=== PATIENT | female | born 1940 | race Caucasian/White ===

== ENCOUNTER 2024-04-19 20:25 | Inpatient (IN) | payer MEDICARE, OTHER ==
[~2024-04-19] VITALS: Ht 162.6 cm; Wt 87.1 kg
[2024-04-19 21:16] LABS: BASOPHILS % (AUTO) 0.4 % (0.0-2.0); EOSINOPHILS # (AUTO) 0.2 K/uL (0.0-0.7); EOSINOPHILS % (AUTO) 2.2 % (0.0-7.0); HEMATOCRIT 38.2 % (31.2-41.9); HEMOGLOBIN 12.7 g/dL (10.9-14.3); LYMPHOCYTES # (AUTO) 1.9 K/uL (0.8-4.8); LYMPHOCYTES % (AUTO) 19.7 % (20.5-51.5); MEAN CORPUSCULAR HEMOGLOBIN 29.2 uug (24.7-32.8); MEAN CORPUSCULAR HGB CONC 33 g/dL (32.3-35.6); MEAN CORPUSCULAR VOLUME 87.8 fL (75.5-95.3); MONOCYTES # (AUTO) 0.7 K/uL (0.1-1.30); MONOCYTES % (AUTO) 7.5 % (0.0-11.0); NEUTROPHILS # (AUTO) 6.9 K/uL (1.8-8.9); NEUTROPHILS % (AUTO) 70.2 % (38.5-71.5); PLATELET COUNT (AUTO) 266 K/uL (179-408); RED BLOOD CELL COUNT(AUTO) 4.34 MIL/uL (3.63-4.92); RED CELL DISTRIBUTION WIDTH 13.7 % (12.3-17.7); WHITE BLOOD COUNT (AUTO) 9.8 K/uL (3.8-11.8)
[2024-04-19 21:28] LABS: DIFFERENTIAL COMMENT 1
[2024-04-19 21:41] LABS: ALANINE AMINOTRANSFERASE 23 U/L (14-59); ALBUMIN 3.6 g/dL (3.4-5.0); ALKALINE PHOSPHATASE 94 U/L (50-136); ASPARTATE AMINOTRANSFERASE 11 U/L (15-37); BILIRUBIN,DIRECT 0.1 mg/dL (0.0-0.2); BILIRUBIN,TOTAL 0.5 mg/dL (0.2-1.0); CALCIUM 8.7 mg/dL (8.5-10.1); CARBON DIOXIDE 30 mmol/L (21-32); CHLORIDE 100 mmol/L (98-107); CREATININE 0.5 mg/dL (0.6-1.3); GLUCOSE 144 mg/dL (74-106); POTASSIUM 3.8 mmol/L (3.5-5.1); SODIUM SERUM 139 mmol/L (136-145); TOTAL PROTEIN, SERUM 7.3 g/dL (6.4-8.2); UREA NITROGEN, BLOOD 14 mg/dL (7-18)
[2024-04-19] MEDS ORDERED: HYDROMORPHONE 1 MG/1 ML DISP.SYRIN ONE (22:00)
[2024-04-19] MEDS: HYDROMORPHONE 1 MG/1 ML DISP.SYRIN IV ONE (22:02)
[2024-04-19] MEDS ORDERED: ASPI-1420 PO (23:51)
[2024-04-19] MEDS ORDERED: OLME40TA18 PO (23:51)
[2024-04-20] MEDS ORDERED: ACETAMINOPHEN 325 MG TABLET PO PRN (00:15)
[2024-04-20] MEDS: ENOXAPARIN SODIUM 40 MG/0.4 ML DISP.SYRIN SQ SCH (00:15)
[2024-04-20] MEDS ORDERED: ONDANSETRON 4 MG/2 ML VIAL IV PRN (00:15)
[2024-04-20] MEDS ORDERED: IV NS 1000 ML 1,000 ML IV PRN (00:15)
[2024-04-20] MEDS ORDERED: MORPHINE SULFATE 2 MG/1 ML DISP.SYRIN ONE (01:02)
[2024-04-20] MEDS: MORPHINE SULFATE 2 MG/1 ML DISP.SYRIN IV PRN (01:07)
[2024-04-20] MEDS ORDERED: DOCUSATE SODIUM 100 MG CAPSULE PO ONE (02:45)
[2024-04-20] MEDS ORDERED: ENOXAPARIN SODIUM 40 MG/0.4 ML DISP.SYRIN SQ ONE (02:45)
[2024-04-20] MEDS: DOCUSATE SODIUM 100 MG CAPSULE PO SCH (02:48)
[2024-04-20 05:15] VITALS: BP 146/70; TEMP 97.9; O2SAT 94
[2024-04-20 09:13] VITALS: BP 188/75; TEMP 97.9; O2SAT 95
[2024-04-20] MEDS ORDERED: Medication Not On Formulary EA (Olmesartan Medoxomil 1 TAB) PO SCH (09:45)
[2024-04-20] MEDS: ASPIRIN EC 81 MG TABLET.DR PO SCH (10:11)
[2024-04-20] MEDS: LOSARTAN POTASSIUM 50 MG TABLET PO SCH (10:11)
[2024-04-20 12:03] VITALS: BP 112/43; TEMP 98.6; O2SAT 95
[2024-04-20] MEDS ORDERED: ASCO500C18 PO (13:25)
[2024-04-20] MEDS ORDERED: CLON0.1T PO (13:25)
[2024-04-20] MEDS ORDERED: ICOS1CAP PO (13:25)
[2024-04-20] MEDS ORDERED: VENL75TA74 PO (13:25)
[2024-04-20] MEDS ORDERED: DOCU250C15 PO (13:25)
[2024-04-20] MEDS ORDERED: CHOL50009 PO (13:25)
[2024-04-20] MEDS ORDERED: BETA1TAB18 PO (13:25)
[2024-04-20] MEDS ORDERED: OMEP40CA21 PO (13:25)
[2024-04-20] MEDS ORDERED: VENL37.591 PO (13:25)
[2024-04-20] MEDS ORDERED: VENLAFAXINE XR 37.5 MG CAP.SR.24H PO PRN (16:15)
[2024-04-20] MEDS ORDERED: DOCUSATE SODIUM 250 MG CAPSULE PO PRN (16:15)
[2024-04-20] MEDS: CLONIDINE HCL 0.1 MG TABLET PO SCH (16:46)
[2024-04-20] MEDS ORDERED: Icosapent Ethyl (Vascepa) 1 GM) PO SCH (17:00)
[2024-04-20] MEDS: CHOLECALCIFEROL 1,000 UNIT TABLET PO SCH (17:19)
[2024-04-20] MEDS: VENLAFAXINE XR 75 MG TAB.ER.24H PO SCH (17:20)
[2024-04-20] MEDS: ASCORBIC ACID 500 MG TABLET PO SCH (17:20)
[2024-04-20] MEDS: BETA CAROTENE/VIT C & E/MIN TABLET PO SCH (17:20)
[2024-04-20 19:50] VITALS: BP 165/61; TEMP 99.2; O2SAT 98
[2024-04-20 20:10] VITALS: BP 150/72
[2024-04-20] MEDS: HYDROCODONE/APAP 10-325 MG TABLET PO PRN (20:33)
[2024-04-21] VITALS (7 sets, daily range): BP systolic 115–164; BP diastolic 61–99; TEMP 97.8–98.7; O2SAT 94–98
[2024-04-21] MEDS: PANTOPRAZOLE SODIUM 40 MG TABLET.DR PO SCH (06:11)
[2024-04-21 07:26] LABS: BASOPHILS % (AUTO) 0.2 % (0.0-2.0); EOSINOPHILS # (AUTO) 0.1 K/uL (0.0-0.7); EOSINOPHILS % (AUTO) 1.5 % (0.0-7.0); HEMATOCRIT 35.6 % (31.2-41.9); HEMOGLOBIN 12.4 g/dL (10.9-14.3); LYMPHOCYTES # (AUTO) 2.1 K/uL (0.8-4.8); LYMPHOCYTES % (AUTO) 23.9 % (20.5-51.5); MEAN CORPUSCULAR HEMOGLOBIN 30.3 uug (24.7-32.8); MEAN CORPUSCULAR HGB CONC 35 g/dL (32.3-35.6); MEAN CORPUSCULAR VOLUME 87.1 fL (75.5-95.3); MONOCYTES # (AUTO) 0.9 K/uL (0.1-1.30); MONOCYTES % (AUTO) 10.5 % (0.0-11.0); NEUTROPHILS # (AUTO) 5.7 K/uL (1.8-8.9); NEUTROPHILS % (AUTO) 63.9 % (38.5-71.5); PLATELET COUNT (AUTO) 246 K/uL (179-408); RED BLOOD CELL COUNT(AUTO) 4.08 MIL/uL (3.63-4.92); RED CELL DISTRIBUTION WIDTH 14.1 % (12.3-17.7); WHITE BLOOD COUNT (AUTO) 8.9 K/uL (3.8-11.8)
[2024-04-21 07:37] LABS: ABG BASE EXCESS 1.4 mmol/L (-2.0-3.0); ABG HCO3 24.7 mmol/L (21.0-28.0); ABG PCO2 34.7 mmHg (32.0-45.0); ABG PO2 65.2 mmHg (83.0-108.0); ABG SITE LEFT RADIAL; ABG TOTAL HEMOGLOBIN 13.1 G/dL (12.0-16.0); AaDO2 94.1 mmHg; COHb 1.1 % (0.5-1.5); MetHb 0.2 % (0.0-1.5); O2Hb 91.9 % (94.0-98.0)
[2024-04-21 07:44] LABS: DIFFERENTIAL COMMENT 1
[2024-04-21 08:38] LABS: CARBON DIOXIDE 26 mmol/L (21-32); CHLORIDE 97 mmol/L (98-107); CREATININE 0.6 mg/dL (0.6-1.3); GLUCOSE 133 mg/dL (74-106); MAGNESIUM 1.9 mg/dL (1.8-2.4); PHOSPHOROUS 3.1 mg/dL (2.5-4.9); POTASSIUM 3.8 mmol/L (3.5-5.1); SODIUM SERUM 133 mmol/L (136-145); UREA NITROGEN, BLOOD 10 mg/dL (7-18)
[2024-04-21] MEDS: AMIODARONE HCL IV 150 MG in IV DEXTROSE 5% 100 ML IV ONE (11:26)
[2024-04-21] MEDS: AMIODARONE HCL IV 450 MG in IV DEXTROSE 5% 250 ML IV PRN (11:32)
[2024-04-22 06:00] VITALS: BP 172/88; TEMP 98.1; O2SAT 94
[2024-04-22 07:04] LABS: BASOPHILS % (AUTO) 0.3 % (0.0-2.0); EOSINOPHILS # (AUTO) 0.2 K/uL (0.0-0.7); EOSINOPHILS % (AUTO) 1.8 % (0.0-7.0); HEMATOCRIT 33.7 % (31.2-41.9); HEMOGLOBIN 11.6 g/dL (10.9-14.3); LYMPHOCYTES # (AUTO) 2.3 K/uL (0.8-4.8); LYMPHOCYTES % (AUTO) 24.8 % (20.5-51.5); MEAN CORPUSCULAR HEMOGLOBIN 29.7 uug (24.7-32.8); MEAN CORPUSCULAR HGB CONC 34 g/dL (32.3-35.6); MEAN CORPUSCULAR VOLUME 86.2 fL (75.5-95.3); MONOCYTES # (AUTO) 1.1 K/uL (0.1-1.30); MONOCYTES % (AUTO) 11.4 % (0.0-11.0); NEUTROPHILS # (AUTO) 5.8 K/uL (1.8-8.9); NEUTROPHILS % (AUTO) 61.7 % (38.5-71.5); PLATELET COUNT (AUTO) 247 K/uL (179-408); RED BLOOD CELL COUNT(AUTO) 3.91 MIL/uL (3.63-4.92); WHITE BLOOD COUNT (AUTO) 9.4 K/uL (3.8-11.8)
[2024-04-22 07:30] LABS: CALCIUM 8.1 mg/dL (8.5-10.1); CARBON DIOXIDE 26 mmol/L (21-32); CHLORIDE 94 mmol/L (98-107); CREATININE 0.5 mg/dL (0.6-1.3); GLUCOSE 144 mg/dL (74-106); MAGNESIUM 1.7 mg/dL (1.8-2.4); PHOSPHOROUS 3.5 mg/dL (2.5-4.9); POTASSIUM 3.9 mmol/L (3.5-5.1); SODIUM SERUM 129 mmol/L (136-145); UREA NITROGEN, BLOOD 11 mg/dL (7-18)
[2024-04-22 07:38] LABS: DIFFERENTIAL COMMENT 1
[2024-04-22 07:40] VITALS: BP 161/83; TEMP 98.4; O2SAT 98
[2024-04-22 11:42] VITALS: BP 143/85; TEMP 98.9; O2SAT 95
[2024-04-22] MEDS ORDERED: VANCOMYCIN 1000 MG VIAL ONE (14:41)
[2024-04-22] MEDS ORDERED: FENTANYL CITRATE 100 MCG/2 ML AMPUL ONE (14:46)
[2024-04-22] MEDS: HYDROMORPHONE 1 MG/1 ML DISP.SYRIN IV PRN (16:43)
[2024-04-22] MEDS ORDERED: CEFAZOLIN 1 G in IV DEXTROSE 5% 50 ML IV SCH (17:15)
[2024-04-22] MEDS: IV D5W-0.45% NS +20 KCL 1,000 ML IV PRN (17:47)
[2024-04-22] MEDS: MAGNESIUM OXIDE 400 MG TABLET PO ONE (17:47)
[2024-04-22 19:50] VITALS: BP 116/67; TEMP 97.4; O2SAT 97
[2024-04-22] MEDS: HYDROCODONE/APAP 10-325 MG TABLET PO PRN (20:14)
[2024-04-22] MEDS: CEFAZOLIN 1 G in IV DEXTROSE 5% 50 ML IV SCH (22:12)
[2024-04-23 06:49] LABS: BASOPHILS % (AUTO) 0.2 % (0.0-2.0); EOSINOPHILS # (AUTO) 0.2 K/uL (0.0-0.7); EOSINOPHILS % (AUTO) 2.1 % (0.0-7.0); HEMOGLOBIN 10.2 g/dL (10.9-14.3); LYMPHOCYTES # (AUTO) 2.1 K/uL (0.8-4.8); LYMPHOCYTES % (AUTO) 23.7 % (20.5-51.5); MEAN CORPUSCULAR HEMOGLOBIN 30.3 uug (24.7-32.8); MEAN CORPUSCULAR HGB CONC 35 g/dL (32.3-35.6); MEAN CORPUSCULAR VOLUME 86.2 fL (75.5-95.3); MONOCYTES # (AUTO) 1.2 K/uL (0.1-1.30); MONOCYTES % (AUTO) 13.8 % (0.0-11.0); NEUTROPHILS # (AUTO) 5.3 K/uL (1.8-8.9); NEUTROPHILS % (AUTO) 60.2 % (38.5-71.5); PLATELET COUNT (AUTO) 249 K/uL (179-408); RED BLOOD CELL COUNT(AUTO) 3.37 MIL/uL (3.63-4.92); RED CELL DISTRIBUTION WIDTH 13.8 % (12.3-17.7); WHITE BLOOD COUNT (AUTO) 8.9 K/uL (3.8-11.8)
[2024-04-23 07:06] LABS: DIFFERENTIAL COMMENT 1
[2024-04-23 07:11] LABS: CALCIUM 7.4 mg/dL (8.5-10.1); CARBON DIOXIDE 25 mmol/L (21-32); CHLORIDE 95 mmol/L (98-107); CREATININE 0.5 mg/dL (0.6-1.3); GLUCOSE 157 mg/dL (74-106); MAGNESIUM 1.9 mg/dL (1.8-2.4); PHOSPHOROUS 3.4 mg/dL (2.5-4.9); POTASSIUM 4.2 mmol/L (3.5-5.1); SODIUM SERUM 128 mmol/L (136-145); UREA NITROGEN, BLOOD 16 mg/dL (7-18)
[2024-04-23 07:46] VITALS: BP 126/69; TEMP 98.2; O2SAT 98
[2024-04-23] MEDS: MORPHINE SULFATE 2 MG/1 ML DISP.SYRIN IV PRN (09:10)
[2024-04-23 11:49] VITALS: BP 111/65; TEMP 97.7; O2SAT 98
[2024-04-23] MEDS ORDERED: LOSA50TA3 PO (12:49)
[2024-04-23] MEDS ORDERED: ENOX40DI SQ ×2 (12:49→19:06)
[2024-04-23 15:35] VITALS: BP 109/59; TEMP 97.9; O2SAT 95
[2024-04-23] MEDS ORDERED: OMEGA-3 FATTY ACIDS/FISH OIL CAPSULE PO SCH (17:00)
[2024-04-23] MEDS ORDERED: PANT40TA49 PO (19:06)
[2024-04-23] MEDS ORDERED: VENL-192 PO (19:06)
[2024-04-23] MEDS ORDERED: ICOS1CAP PO (19:06)
[2024-04-23] MEDS ORDERED: LOSA100T31 PO (19:06)
[2024-04-23] MEDS ORDERED: CHOL500062 PO (19:06)
[2024-04-23] MEDS ORDERED: CLON-418 PO (19:06)
[2024-04-23] MEDS ORDERED: BETA1TAB19 PO (19:06)
[2024-04-23] MEDS ORDERED: OLME5TAB6 PO (19:06)
[2024-04-23] MEDS ORDERED: ASCO500C18 PO (19:06)
[2024-04-23] MEDS ORDERED: DOCU250C15 PO (19:06)
[2024-04-23] MEDS ORDERED: ASPI-1420 PO (19:06)
== END 2024-04-23 15:53 | DRG 481 ==
LOC: EDBD 20:25 → ER 22:39 → TELE3 04-20 04:23 → TELE-TD3 04-21 09:45 → TELE3 04-22 19:00 → TELE-TD3 04-23 06:36 → MEDSURG3 04-23 08:55
PROVIDERS: ADMIT Nurse Practitioner Acute Care; ATTEND Nurse Practitioner Acute Care
PROC: 2W3CX1Z Immobilization of Right Lower Arm using Splint (ICD-10-PCS; 2024-04-19)
PROC: 05HY33Z Insertion of Infusion Device into Upper Vein, Percutaneous Approach (ICD-10-PCS; 2024-04-21)
PROC: 0QS636Z Reposition Right Upper Femur with Intramedullary Internal Fixation Device, Percutaneous Approach (ICD-10-PCS; principal; 2024-04-22)
DX: S72.141A Displaced intertrochanteric fracture of right femur, initial encounter for closed fracture (principal); D68.59 Other primary thrombophilia; S52.571A Other intraarticular fracture of lower end of right radius, initial encounter for closed fracture; E87.1 Hypo-osmolality and hyponatremia; W01.190A Fall on same level from slipping, tripping and stumbling with subsequent striking against furniture, initial encounter; Y92.038 Other place in apartment as the place of occurrence of the external cause; E66.9 Obesity, unspecified; Z68.33 Body mass index [BMI] 33.0-33.9, adult; K57.30 Diverticulosis of large intestine without perforation or abscess without bleeding; Z79.82 Long term (current) use of aspirin; Z79.899 Other long term (current) drug therapy; E78.5 Hyperlipidemia, unspecified; G89.29 Other chronic pain; M51.360 Other intervertebral disc degeneration, lumbar region with discogenic back pain only; M48.061 Spinal stenosis, lumbar region without neurogenic claudication; M47.816 Spondylosis without myelopathy or radiculopathy, lumbar region; I11.9 Hypertensive heart disease without heart failure; F41.9 Anxiety disorder, unspecified; I48.0 Paroxysmal atrial fibrillation; Z86.16 Personal history of COVID-19; Z87.891 Personal history of nicotine dependence; K56.41 Fecal impaction
CPT/HCPCS: 36415; 36600; 70450; 71045; 72192; 73110; 73503; 82803; 83605; 83735; 84100; 84484; 85025; 85730; 93307; A4606; A4663; G0378; J0282; J0690; J1171; J1650; J2270; J3010; J3370; J7050

== ENCOUNTER 2024-04-23 14:16 | Inpatient (IN) | payer MEDICARE, OTHER ==
[~2024-04-23] VITALS: Ht 162.6 cm; Wt 87.1 kg
[~2024-04-23 14:16] MED LIST: ASCO500C18 PO; ASPI-1420 PO; BETA1TAB18 PO; CHOL50009 PO; CLON0.1T PO; DOCU250C15 PO; ENOX40DI SQ; ICOS1CAP PO; LOSA50TA3 PO; OLME40TA18 PO; OMEP40CA21 PO; VENL37.591 PO; VENL75TA74 PO
[2024-04-23] MEDS ORDERED: BETA1TAB19 PO (19:06)
[2024-04-23] MEDS ORDERED: DOCU250C15 PO (19:06)
[2024-04-23] MEDS ORDERED: PANT40TA49 PO (19:06)
[2024-04-23] MEDS ORDERED: CLON-418 PO (19:06)
[2024-04-23] MEDS ORDERED: ASCO500C18 PO (19:06)
[2024-04-23] MEDS ORDERED: ASPI-1420 PO (19:06)
[2024-04-23] MEDS ORDERED: ICOS1CAP PO (19:06)
[2024-04-23] MEDS ORDERED: ENOX40DI SQ (19:06)
[2024-04-23] MEDS ORDERED: VENL-192 PO (19:06)
[2024-04-23] MEDS ORDERED: LOSA100T31 PO (19:06)
[2024-04-23] MEDS ORDERED: CHOL500062 PO (19:06)
[2024-04-23] MEDS ORDERED: OLME5TAB6 PO (19:06)
[2024-04-23] MEDS: MAGNESIUM HYDROXIDE 30 ML LIQUID UDC PO PRN (20:55)
[2024-04-23 21:38] VITALS: BP 107/47; TEMP 97.9; O2SAT 90
[2024-04-24] MEDS ORDERED: DOCUSATE SODIUM 250 MG CAPSULE PO PRN (02:30)
[2024-04-24] MEDS: ENOXAPARIN SODIUM 40 MG/0.4 ML DISP.SYRIN SQ SCH (03:46)
[2024-04-24] MEDS: HYDROCODONE/APAP 5-325MG TABLET PO PRN (06:48)
[2024-04-24] MEDS: PANTOPRAZOLE SODIUM 40 MG TABLET.DR PO SCH (06:48)
[2024-04-24 07:39] VITALS: BP 148/65; TEMP 97.7; O2SAT 91
[2024-04-24] MEDS ORDERED: Icosapent Ethyl (Vascepa) 1 GM) PO SCH (09:00)
[2024-04-24] MEDS ORDERED: Medication Not On Formulary EA (Omeprazole 40 MG) PO SCH (09:00)
[2024-04-24] MEDS: ASPIRIN EC 81 MG TABLET.DR PO SCH (09:22)
[2024-04-24] MEDS: BETA CAROTENE/VIT C & E/MIN TABLET PO SCH (09:22)
[2024-04-24] MEDS: LOSARTAN POTASSIUM 50 MG TABLET PO SCH (09:24)
[2024-04-24] MEDS: VENLAFAXINE XR 75 MG TAB.ER.24H PO SCH (09:25)
[2024-04-24] MEDS: ASCORBIC ACID 500 MG TABLET PO SCH (09:25)
[2024-04-24] MEDS: CHOLECALCIFEROL 1,000 UNIT TABLET PO SCH (09:25)
[2024-04-24] MEDS: CLONIDINE HCL 0.1 MG TABLET PO SCH (09:26)
[2024-04-24] MEDS ORDERED: NALOXONE HCL 0.4 MG/ML AMPUL IV PRN (11:15)
[2024-04-24] MEDS: IV NORMAL SALINE 250 ML IV ONE (12:41)
[2024-04-24 12:53] VITALS: BP 130/49; TEMP 98.1; O2SAT 92
[2024-04-24] MEDS: OXYCODONE HCL 5 MG TABLET PO PRN (16:21)
[2024-04-24 19:56] VITALS: BP 104/46; TEMP 98.3; O2SAT 90
[2024-04-24 20:44] VITALS: BP 110/51; TEMP 98.8; O2SAT 94
[2024-04-24] MEDS: OXYCODONE HCL 10 MG TAB.SR.12H PO SCH (21:57)
[2024-04-25 06:12] VITALS: BP 100/71; TEMP 98.2; O2SAT 100
[2024-04-25 08:00] VITALS: BP 110/56; TEMP 98.3; O2SAT 96
[2024-04-25 08:15] LABS: BASOPHILS % (AUTO) 0.2 % (0.0-2.0); EOSINOPHILS # (AUTO) 0.1 K/uL (0.0-0.7); EOSINOPHILS % (AUTO) 1.3 % (0.0-7.0); HEMATOCRIT 34.9 % (31.2-41.9); HEMOGLOBIN 11.1 g/dL (10.9-14.3); LYMPHOCYTES % (AUTO) 13.7 % (20.5-51.5); MEAN CORPUSCULAR HEMOGLOBIN 26.1 uug (24.7-32.8); MEAN CORPUSCULAR HGB CONC 32 g/dL (32.3-35.6); MEAN CORPUSCULAR VOLUME 81.9 fL (75.5-95.3); MONOCYTES # (AUTO) 0.6 K/uL (0.1-1.30); MONOCYTES % (AUTO) 8.8 % (0.0-11.0); NEUTROPHILS # (AUTO) 5.5 K/uL (1.8-8.9); PLATELET COUNT (AUTO) 521 K/uL (179-408); RED BLOOD CELL COUNT(AUTO) 4.26 MIL/uL (3.63-4.92); RED CELL DISTRIBUTION WIDTH 15.3 % (12.3-17.7); WHITE BLOOD COUNT (AUTO) 7.3 K/uL (3.8-11.8)
[2024-04-25 08:24] LABS: DIFFERENTIAL COMMENT 1
[2024-04-25 08:39] LABS: CALCIUM 8.7 mg/dL (8.5-10.1); CARBON DIOXIDE 25 mmol/L (21-32); CHLORIDE 101 mmol/L (98-107); CREATININE 1.1 mg/dL (0.6-1.3); GLUCOSE 165 mg/dL (74-106); MAGNESIUM 2.1 mg/dL (1.8-2.4); PHOSPHOROUS 3.3 mg/dL (2.5-4.9); POTASSIUM 4.6 mmol/L (3.5-5.1); SODIUM SERUM 137 mmol/L (136-145); UREA NITROGEN, BLOOD 57 mg/dL (7-18)
[2024-04-25] MEDS ORDERED: REMEDY ESSENTIAL ZINC PASTE 113 GM TOP PRN (14:15)
[2024-04-25 16:10] VITALS: BP 120/44; TEMP 98.1; O2SAT 93
[2024-04-25 21:23] VITALS: BP 129/43; TEMP 98.4; O2SAT 93
[2024-04-26 07:05] VITALS: BP 139/37; TEMP 97.9; O2SAT 91
[2024-04-26 08:00] VITALS: BP 118/56; TEMP 97.6; O2SAT 97
[2024-04-26] MEDS ORDERED: Icosapent Ethyl (Vascepa) 1 GM) PO SCH (09:00)
[2024-04-26] MEDS: ENOXAPARIN SODIUM 40 MG/0.4 ML DISP.SYRIN SQ SCH (09:18)
[2024-04-26 15:53] VITALS: BP 132/44; TEMP 97.9; O2SAT 91
[2024-04-26] MEDS: ENSURE ENLIVE (VAN) 240 ML LIQUID PO SCH (17:26)
[2024-04-26 20:48] VITALS: BP 126/44; TEMP 97.6; O2SAT 97
[2024-04-27 07:20] VITALS: BP 120/56; TEMP 97.5; O2SAT 94
[2024-04-27 07:56] VITALS: BP 137/78; TEMP 98; O2SAT 95
[2024-04-27 15:39] VITALS: BP 117/63; TEMP 97.6; O2SAT 94
[2024-04-27 21:16] VITALS: BP 108/57; TEMP 98; O2SAT 97
[2024-04-28 05:14] VITALS: BP 112/50; TEMP 98.2; O2SAT 93
[2024-04-28 07:48] LABS: BASOPHILS % (AUTO) 0.3 % (0.0-2.0); EOSINOPHILS # (AUTO) 0.4 K/uL (0.0-0.7); EOSINOPHILS % (AUTO) 4.3 % (0.0-7.0); HEMATOCRIT 23.4 % (31.2-41.9); HEMOGLOBIN 8.2 g/dL (10.9-14.3); LYMPHOCYTES % (AUTO) 29.4 % (20.5-51.5); MEAN CORPUSCULAR HEMOGLOBIN 29.9 uug (24.7-32.8); MEAN CORPUSCULAR HGB CONC 35 g/dL (32.3-35.6); MEAN CORPUSCULAR VOLUME 85.7 fL (75.5-95.3); MONOCYTES # (AUTO) 1.3 K/uL (0.1-1.30); MONOCYTES % (AUTO) 12.1 % (0.0-11.0); NEUTROPHILS # (AUTO) 5.6 K/uL (1.8-8.9); NEUTROPHILS % (AUTO) 53.9 % (38.5-71.5); PLATELET COUNT (AUTO) 381 K/uL (179-408); RED BLOOD CELL COUNT(AUTO) 2.73 MIL/uL (3.63-4.92); RED CELL DISTRIBUTION WIDTH 14.2 % (12.3-17.7); WHITE BLOOD COUNT (AUTO) 10.3 K/uL (3.8-11.8)
[2024-04-28 07:58] LABS: DIFFERENTIAL COMMENT 1
[2024-04-28 08:08] LABS: ALANINE AMINOTRANSFERASE 16 U/L (14-59); ALKALINE PHOSPHATASE 85 U/L (50-136); ASPARTATE AMINOTRANSFERASE 15 U/L (15-37); BILIRUBIN,TOTAL 1.1 mg/dL (0.2-1.0); CALCIUM 7.9 mg/dL (8.5-10.1); CARBON DIOXIDE 28 mmol/L (21-32); CHLORIDE 94 mmol/L (98-107); CREATININE 0.5 mg/dL (0.6-1.3); GLUCOSE 128 mg/dL (74-106); MAGNESIUM 2.1 mg/dL (1.8-2.4); PHOSPHOROUS 3.9 mg/dL (2.5-4.9); POTASSIUM 4.7 mmol/L (3.5-5.1); SODIUM SERUM 130 mmol/L (136-145); TOTAL PROTEIN, SERUM 5.6 g/dL (6.4-8.2); UREA NITROGEN, BLOOD 14 mg/dL (7-18)
[2024-04-28 09:00] VITALS: BP 138/56; TEMP 98.3; O2SAT 98
[2024-04-28 16:08] VITALS: BP 111/54; TEMP 98.2; O2SAT 97
[2024-04-28 17:22] LABS: *SODIUM RNDM,URINE 10 mmol/L (40-220)
[2024-04-28 20:13] VITALS: BP 119/54; TEMP 98.3; O2SAT 95
[2024-04-29 06:14] VITALS: BP 160/58; TEMP 98.3; O2SAT 98
[2024-04-29 09:06] LABS: CALCIUM 8.3 mg/dL (8.5-10.1); CARBON DIOXIDE 26 mmol/L (21-32); CHLORIDE 97 mmol/L (98-107); CREATININE 0.5 mg/dL (0.6-1.3); GLUCOSE 127 mg/dL (74-106); MAGNESIUM 2.1 mg/dL (1.8-2.4); PHOSPHOROUS 3.9 mg/dL (2.5-4.9); POTASSIUM 4.1 mmol/L (3.5-5.1); SODIUM SERUM 133 mmol/L (136-145); UREA NITROGEN, BLOOD 12 mg/dL (7-18); URIC ACID 3.2 mg/dL (2.6-6.0)
[2024-04-29] MEDS: LIDOCAINE 5% PATCH TD SCH (10:24)
[2024-04-29] MEDS: VASCEPA 1 GM PO SCH (10:24)
[2024-04-29 10:50] LABS: THYROID STIMULATING HORMONE 1.203 mIU/mL (0.358-3.740)
[2024-04-29 18:37] VITALS: BP 101/81; TEMP 97.7; O2SAT 96
[2024-04-29] MEDS: ACETAMINOPHEN 500 MG TABLET PO PRN (20:23)
[2024-04-29 20:43] VITALS: BP 157/75; TEMP 97.8; O2SAT 93
[2024-04-30 07:06] VITALS: BP 128/58; TEMP 98.3; O2SAT 93
[2024-04-30 07:50] VITALS: BP 108/54; TEMP 97.2; O2SAT 96
[2024-04-30] MEDS: LIDOCAINE 5% PATCH TD SCH (09:00)
[2024-04-30 09:17] LABS: BASOPHILS % (AUTO) 0.4 % (0.0-2.0); EOSINOPHILS # (AUTO) 0.1 K/uL (0.0-0.7); EOSINOPHILS % (AUTO) 0.9 % (0.0-7.0); HEMATOCRIT 22.7 % (31.2-41.9); HEMOGLOBIN 7.9 g/dL (10.9-14.3); LYMPHOCYTES # (AUTO) 1.3 K/uL (0.8-4.8); LYMPHOCYTES % (AUTO) 17.7 % (20.5-51.5); MEAN CORPUSCULAR HGB CONC 35 g/dL (32.3-35.6); MONOCYTES # (AUTO) 1.1 K/uL (0.1-1.30); NEUTROPHILS # (AUTO) 4.7 K/uL (1.8-8.9); PLATELET COUNT (AUTO) 399 K/uL (179-408); RED BLOOD CELL COUNT(AUTO) 2.64 MIL/uL (3.63-4.92); RED CELL DISTRIBUTION WIDTH 14.2 % (12.3-17.7); WHITE BLOOD COUNT (AUTO) 7.1 K/uL (3.8-11.8)
[2024-04-30 09:21] LABS: DIFFERENTIAL COMMENT 1
[2024-04-30 09:40] LABS: ALANINE AMINOTRANSFERASE 21 U/L (14-59); ALBUMIN 2.1 g/dL (3.4-5.0); ALKALINE PHOSPHATASE 87 U/L (50-136); ASPARTATE AMINOTRANSFERASE 22 U/L (15-37); BILIRUBIN,DIRECT 0.4 mg/dL (0.0-0.2); BILIRUBIN,TOTAL 1.2 mg/dL (0.2-1.0); CALCIUM 7.8 mg/dL (8.5-10.1); CARBON DIOXIDE 25 mmol/L (21-32); CHLORIDE 94 mmol/L (98-107); CREATININE 0.5 mg/dL (0.6-1.3); GLUCOSE 117 mg/dL (74-106); MAGNESIUM 1.8 mg/dL (1.8-2.4); PHOSPHOROUS 3.9 mg/dL (2.5-4.9); POTASSIUM 3.7 mmol/L (3.5-5.1); SODIUM SERUM 130 mmol/L (136-145); TOTAL PROTEIN, SERUM 5.5 g/dL (6.4-8.2); UREA NITROGEN, BLOOD 13 mg/dL (7-18)
[2024-04-30 16:29] VITALS: BP 123/74; TEMP 97.6; O2SAT 97
[2024-04-30 16:42] LABS: BAND % (MANUAL) 6 % (0-10); LYMPHOCYTES % (MANUAL) 14 % (20-40); MONOCYTES % (MANUAL) 17 % (2-10); NEUTROPHILS % (MANUAL) 63 % (42-75); PLATELET ESTIMATE ADEQUATE
[2024-04-30 20:22] VITALS: BP 129/60; TEMP 97.8; O2SAT 93
[2024-05-01 06:28] VITALS: BP 148/65; TEMP 97.9; O2SAT 92
[2024-05-01 10:00] VITALS: BP 114/60; TEMP 98; O2SAT 94
[2024-05-01] MEDS: MEGESTROL ACETATE 400 MG/10 ML LIQUID UDC PO SCH (13:00)
[2024-05-01 16:00] VITALS: BP 158/80; TEMP 97.7; O2SAT 95
[2024-05-01 21:00] VITALS: BP 155/68; TEMP 98.6; O2SAT 93
[2024-05-01] MEDS: GUAIFENESIN/DEXTROMETHORPHAN 5 ML UDC PO PRN (22:42)
[2024-05-02 05:00] VITALS: BP 91/54; TEMP 97.9; O2SAT 93
[2024-05-02 08:22] LABS: BASOPHILS % (AUTO) 0.4 % (0.0-2.0); EOSINOPHILS # (AUTO) 0.1 K/uL (0.0-0.7); EOSINOPHILS % (AUTO) 0.9 % (0.0-7.0); HEMATOCRIT 25.8 % (31.2-41.9); HEMOGLOBIN 8.9 g/dL (10.9-14.3); LYMPHOCYTES # (AUTO) 1.2 K/uL (0.8-4.8); LYMPHOCYTES % (AUTO) 20.9 % (20.5-51.5); MEAN CORPUSCULAR HEMOGLOBIN 30.1 uug (24.7-32.8); MEAN CORPUSCULAR HGB CONC 35 g/dL (32.3-35.6); MONOCYTES # (AUTO) 0.5 K/uL (0.1-1.30); MONOCYTES % (AUTO) 9.2 % (0.0-11.0); NEUTROPHILS # (AUTO) 4.1 K/uL (1.8-8.9); NEUTROPHILS % (AUTO) 68.6 % (38.5-71.5); PLATELET COUNT (AUTO) 456 K/uL (179-408); RED BLOOD CELL COUNT(AUTO) 2.96 MIL/uL (3.63-4.92); RED CELL DISTRIBUTION WIDTH 14.7 % (12.3-17.7); WHITE BLOOD COUNT (AUTO) 5.9 K/uL (3.8-11.8)
[2024-05-02 08:33] LABS: DIFFERENTIAL COMMENT 1
[2024-05-02 08:49] LABS: ALANINE AMINOTRANSFERASE 21 U/L (14-59); ALBUMIN 2.3 g/dL (3.4-5.0); ALKALINE PHOSPHATASE 95 U/L (50-136); ASPARTATE AMINOTRANSFERASE 21 U/L (15-37); BILIRUBIN,DIRECT 0.4 mg/dL (0.0-0.2); CALCIUM 8.2 mg/dL (8.5-10.1); CARBON DIOXIDE 28 mmol/L (21-32); CHLORIDE 99 mmol/L (98-107); CHOLESTEROL 170 mg/dL (<200); CREATININE 0.5 mg/dL (0.6-1.3); GLUCOSE 117 mg/dL (74-106); HDL CHOLESTEROL 40 mg/dL (40-60); MAGNESIUM 1.9 mg/dL (1.8-2.4); NT-PRO BNP 1119 pg/mL (0-125); PHOSPHOROUS 3.9 mg/dL (2.5-4.9); POTASSIUM 3.5 mmol/L (3.5-5.1); SODIUM SERUM 134 mmol/L (136-145); TOTAL PROTEIN, SERUM 5.6 g/dL (6.4-8.2); TRIGLYCERIDES 81 MG/DL (30-150); UREA NITROGEN, BLOOD 12 mg/dL (7-18)
[2024-05-02 08:57] VITALS: BP 119/53; TEMP 97.8; O2SAT 92
[2024-05-02 08:57] LABS: IRON, SERUM 35 ug/dL (50-175)
[2024-05-02 10:06] LABS: THYROID STIMULATING HORMONE 1.138 mIU/mL (0.358-3.740)
[2024-05-02] MEDS: LIDOCAINE 5% PATCH TD SCH (10:39)
[2024-05-02] MEDS ORDERED: IOHEXOL 350 100 ML INFUS..BTL ONE (11:50)
[2024-05-02] MEDS ORDERED: SWABABLE VALVE TRANSFER SET EA MC ONE (11:50)
[2024-05-02] MEDS ORDERED: IV NORMAL SALINE 250 ML IV ONE (11:51)
[2024-05-02] MEDS: ONDANSETRON HCL 4 MG TABLET PO PRN (15:02)
[2024-05-02 15:14] LABS: *OCCULT BLOOD STOOL NEGATIVE (NEGATIVE)
[2024-05-02 19:21] VITALS: BP 131/59; TEMP 98.1; O2SAT 93
[2024-05-02 20:48] VITALS: BP 136/65; TEMP 98.4; O2SAT 92
[2024-05-03 07:19] VITALS: BP 126/61; TEMP 98; O2SAT 99
[2024-05-03 07:45] LABS: BASOPHILS # (AUTO) 0.1 K/UL (0.0-0.2); EOSINOPHILS # (AUTO) 0.1 K/uL (0.0-0.7); EOSINOPHILS % (AUTO) 2.4 % (0.0-7.0); HEMATOCRIT 24.4 % (31.2-41.9); HEMOGLOBIN 8.3 g/dL (10.9-14.3); LYMPHOCYTES # (AUTO) 1.6 K/uL (0.8-4.8); LYMPHOCYTES % (AUTO) 25.6 % (20.5-51.5); MEAN CORPUSCULAR HEMOGLOBIN 30.2 uug (24.7-32.8); MEAN CORPUSCULAR HGB CONC 34 g/dL (32.3-35.6); MEAN CORPUSCULAR VOLUME 88.6 fL (75.5-95.3); MONOCYTES # (AUTO) 0.5 K/uL (0.1-1.30); NEUTROPHILS # (AUTO) 3.9 K/uL (1.8-8.9); PLATELET COUNT (AUTO) 439 K/uL (179-408); RED BLOOD CELL COUNT(AUTO) 2.75 MIL/uL (3.63-4.92); RED CELL DISTRIBUTION WIDTH 15.3 % (12.3-17.7); WHITE BLOOD COUNT (AUTO) 6.2 K/uL (3.8-11.8)
[2024-05-03 07:46] LABS: DIFFERENTIAL COMMENT 1
[2024-05-03 08:00] VITALS: BP 157/64; TEMP 97.6; O2SAT 99
[2024-05-03 08:07] LABS: CALCIUM 7.9 mg/dL (8.5-10.1); CARBON DIOXIDE 25 mmol/L (21-32); CHLORIDE 100 mmol/L (98-107); CREATININE 0.5 mg/dL (0.6-1.3); GLUCOSE 107 mg/dL (74-106); MAGNESIUM 1.8 mg/dL (1.8-2.4); PHOSPHOROUS 3.6 mg/dL (2.5-4.9); POTASSIUM 3.3 mmol/L (3.5-5.1); SODIUM SERUM 133 mmol/L (136-145); UREA NITROGEN, BLOOD 13 mg/dL (7-18)
[2024-05-03] MEDS: POTASSIUM CHLORIDE 20 MEQ TAB.PRT.SR PO ONE (10:23)
[2024-05-03 16:00] VITALS: BP 118/60; TEMP 97.2; O2SAT 99
[2024-05-03] MEDS ORDERED: ALBUTEROL SULFATE 2.5 MG/ 0.5 ML NEBU NEB PRN (16:15)
[2024-05-03] MEDS: AZITHROMYCIN 250 MG TABLET PO ONE ×2 (17:51→17:53)
[2024-05-03] MEDS ORDERED: ACETAMINOPHEN 500 MG TABLET PO PRN (18:30)
[2024-05-03 21:14] VITALS: BP 103/60; TEMP 98; O2SAT 99
[2024-05-03] MEDS: MELATONIN 3 MG TABLET PO SCH (21:50)
[2024-05-04] VITALS (9 sets, daily range): BP systolic 119–142; BP diastolic 53–75; TEMP 97.8–98.3; O2SAT 91–99
[2024-05-04 07:03] LABS: BASOPHILS # (AUTO) 0.1 K/UL (0.0-0.2); BASOPHILS % (AUTO) 0.8 % (0.0-2.0); EOSINOPHILS # (AUTO) 0.2 K/uL (0.0-0.7); EOSINOPHILS % (AUTO) 3.5 % (0.0-7.0); HEMATOCRIT 29.1 % (31.2-41.9); HEMOGLOBIN 9.5 g/dL (10.9-14.3); LYMPHOCYTES # (AUTO) 1.7 K/uL (0.8-4.8); LYMPHOCYTES % (AUTO) 26.1 % (20.5-51.5); MEAN CORPUSCULAR HEMOGLOBIN 29.7 uug (24.7-32.8); MEAN CORPUSCULAR HGB CONC 33 g/dL (32.3-35.6); MEAN CORPUSCULAR VOLUME 90.5 fL (75.5-95.3); MONOCYTES # (AUTO) 0.6 K/uL (0.1-1.30); MONOCYTES % (AUTO) 9.4 % (0.0-11.0); NEUTROPHILS # (AUTO) 3.8 K/uL (1.8-8.9); NEUTROPHILS % (AUTO) 60.2 % (38.5-71.5); PLATELET COUNT (AUTO) 232 K/uL (179-408); RED BLOOD CELL COUNT(AUTO) 3.22 MIL/uL (3.63-4.92); RED CELL DISTRIBUTION WIDTH 18.2 % (12.3-17.7); WHITE BLOOD COUNT (AUTO) 6.3 K/uL (3.8-11.8)
[2024-05-04 07:07] LABS: DIFFERENTIAL COMMENT 1
[2024-05-04 07:36] LABS: ALANINE AMINOTRANSFERASE 18 U/L (14-59); ALBUMIN 2.2 g/dL (3.4-5.0); ALKALINE PHOSPHATASE 98 U/L (50-136); ASPARTATE AMINOTRANSFERASE 17 U/L (15-37); BILIRUBIN,TOTAL 0.8 mg/dL (0.2-1.0); CALCIUM 7.8 mg/dL (8.5-10.1); CARBON DIOXIDE 27 mmol/L (21-32); CHLORIDE 101 mmol/L (98-107); CREATININE 0.5 mg/dL (0.6-1.3); GLUCOSE 94 mg/dL (74-106); MAGNESIUM 1.7 mg/dL (1.8-2.4); PHOSPHOROUS 3.9 mg/dL (2.5-4.9); POTASSIUM 3.9 mmol/L (3.5-5.1); SODIUM SERUM 133 mmol/L (136-145); TOTAL PROTEIN, SERUM 5.2 g/dL (6.4-8.2); UREA NITROGEN, BLOOD 14 mg/dL (7-18)
[2024-05-04] MEDS: predniSONE 20 MG TABLET PO ONE (09:55)
[2024-05-04] MEDS: MAGNESIUM OXIDE 400 MG TABLET PO ONE (09:56)
[2024-05-04] MEDS: AZITHROMYCIN 250 MG TABLET PO SCH (09:56)
[2024-05-04] MEDS: IPRATROPIUM BROMIDE 0.5 MG/2.5 ML NEBU NEB SCH (12:34)
[2024-05-04] MEDS: ALBUTEROL SULFATE 2.5 MG/3 ML NEBU NEB SCH (12:34)
[2024-05-04] MEDS: MELATONIN 5 MG PO SCH (22:08)
[2024-05-05] VITALS (10 sets, daily range): BP systolic 104–154; BP diastolic 50–64; TEMP 97.6–98; O2SAT 92–100
[2024-05-05 07:47] LABS: BASOPHILS % (AUTO) 0.3 % (0.0-2.0); EOSINOPHILS % (AUTO) 0.3 % (0.0-7.0); HEMATOCRIT 23.6 % (31.2-41.9); HEMOGLOBIN 8.2 g/dL (10.9-14.3); LYMPHOCYTES # (AUTO) 2.1 K/uL (0.8-4.8); LYMPHOCYTES % (AUTO) 37.3 % (20.5-51.5); MEAN CORPUSCULAR HEMOGLOBIN 30.2 uug (24.7-32.8); MEAN CORPUSCULAR HGB CONC 35 g/dL (32.3-35.6); MEAN CORPUSCULAR VOLUME 87.3 fL (75.5-95.3); MONOCYTES # (AUTO) 0.5 K/uL (0.1-1.30); MONOCYTES % (AUTO) 9.7 % (0.0-11.0); NEUTROPHILS # (AUTO) 2.9 K/uL (1.8-8.9); NEUTROPHILS % (AUTO) 52.4 % (38.5-71.5); PLATELET COUNT (AUTO) 388 K/uL (179-408); RED BLOOD CELL COUNT(AUTO) 2.71 MIL/uL (3.63-4.92); RED CELL DISTRIBUTION WIDTH 15.4 % (12.3-17.7); WHITE BLOOD COUNT (AUTO) 5.5 K/uL (3.8-11.8)
[2024-05-05 07:53] LABS: DIFFERENTIAL COMMENT 1
[2024-05-05 08:01] LABS: CALCIUM 8.2 mg/dL (8.5-10.1); CARBON DIOXIDE 28 mmol/L (21-32); CHLORIDE 100 mmol/L (98-107); CREATININE 0.5 mg/dL (0.6-1.3); GLUCOSE 102 mg/dL (74-106); PHOSPHOROUS 3.8 mg/dL (2.5-4.9); POTASSIUM 3.7 mmol/L (3.5-5.1); SODIUM SERUM 135 mmol/L (136-145); UREA NITROGEN, BLOOD 12 mg/dL (7-18)
[2024-05-05] MEDS: predniSONE 20 MG TABLET PO SCH (10:02)
[2024-05-06] VITALS (9 sets, daily range): BP systolic 125–152; BP diastolic 51–61; TEMP 97–97.8; O2SAT 94–98
[2024-05-06] MEDS: ACETAMINOPHEN 325 MG TABLET PO PRN (01:58)
[2024-05-06] MEDS: TEMAZEPAM 7.5 MG CAPSULE PO SCH (22:07)
[2024-05-06] MEDS: ACETAMINOPHEN 500 MG PO PRN (22:12)
[2024-05-07] VITALS (11 sets, daily range): BP systolic 112–144; BP diastolic 50–66; TEMP 97.7–98; O2SAT 90–99
[2024-05-07 08:39] LABS: BASOPHILS # (AUTO) 0.1 K/UL (0.0-0.2); BASOPHILS % (AUTO) 0.8 % (0.0-2.0); EOSINOPHILS % (AUTO) 0.4 % (0.0-7.0); HEMOGLOBIN 9.1 g/dL (10.9-14.3); LYMPHOCYTES % (AUTO) 45.9 % (20.5-51.5); MEAN CORPUSCULAR HEMOGLOBIN 30.3 uug (24.7-32.8); MEAN CORPUSCULAR HGB CONC 34 g/dL (32.3-35.6); MEAN CORPUSCULAR VOLUME 90.2 fL (75.5-95.3); MONOCYTES # (AUTO) 0.6 K/uL (0.1-1.30); MONOCYTES % (AUTO) 8.5 % (0.0-11.0); NEUTROPHILS # (AUTO) 2.9 K/uL (1.8-8.9); NEUTROPHILS % (AUTO) 44.4 % (38.5-71.5); PLATELET COUNT (AUTO) 423 K/uL (179-408); RED CELL DISTRIBUTION WIDTH 16.8 % (12.3-17.7); WHITE BLOOD COUNT (AUTO) 6.6 K/uL (3.8-11.8)
[2024-05-07 08:43] LABS: DIFFERENTIAL COMMENT 1
[2024-05-07 08:52] LABS: CALCIUM 8.8 mg/dL (8.5-10.1); CARBON DIOXIDE 25 mmol/L (21-32); CHLORIDE 106 mmol/L (98-107); CREATININE 0.7 mg/dL (0.6-1.3); GLUCOSE 114 mg/dL (74-106); MAGNESIUM 2.1 mg/dL (1.8-2.4); PHOSPHOROUS 3.5 mg/dL (2.5-4.9); POTASSIUM 4.4 mmol/L (3.5-5.1); SODIUM SERUM 142 mmol/L (136-145); UREA NITROGEN, BLOOD 13 mg/dL (7-18)
[2024-05-07] MEDS: CYANOCOBALAMIN 1000 MCG/ML VIAL IM SCH (09:57)
[2024-05-07] MEDS: FERROUS SULFATE 325 MG TABEC PO SCH (09:59)
[2024-05-07] MEDS: PROTEIN SUPPLEMENT (PROSTAT) 30 ML LIQUID PO SCH (10:05)
[2024-05-08] VITALS (8 sets, daily range): BP systolic 134–147; BP diastolic 48–54; TEMP 97.9–98; O2SAT 92–100
[2024-05-09] VITALS (10 sets, daily range): BP systolic 139–169; BP diastolic 56–70; TEMP 97.9–98.5; O2SAT 93–100
[2024-05-10 06:39] VITALS: BP 151/70; TEMP 97.9; O2SAT 95
[2024-05-10 07:10] VITALS: O2SAT 98
[2024-05-10 07:25] VITALS: O2SAT 99
[2024-05-10 07:45] VITALS: BP 156/64; TEMP 98.1; O2SAT 97
[2024-05-10] MEDS ORDERED: IPRATROPIUM BROMIDE 0.5 MG/2.5 ML NEBU NEB PRN (08:00)
[2024-05-10 10:29] VITALS: BP 156/64
[2024-05-10] MEDS: NIFEdipine XL 30 MG TABSR PO SCH (10:29)
[2024-05-10] MEDS ORDERED: MEGE400O4 PO (12:40)
[2024-05-10] MEDS ORDERED: NIFE-35 PO (12:40)
[2024-05-10] MEDS ORDERED: FERR325T28 PO (12:40)
== END 2024-05-10 15:00 | DRG 559 ==
PROVIDERS: ADMIT Physical Medicine & Rehabilitation Pain Medicine; ATTEND Physical Medicine & Rehabilitation Pain Medicine
DX: S72.141D Displaced intertrochanteric fracture of right femur, subsequent encounter for closed fracture with routine healing (principal); E43 Unspecified severe protein-calorie malnutrition; D68.59 Other primary thrombophilia; E87.1 Hypo-osmolality and hyponatremia; J98.11 Atelectasis; S52.571D Other intraarticular fracture of lower end of right radius, subsequent encounter for closed fracture with routine healing; E66.9 Obesity, unspecified; E78.5 Hyperlipidemia, unspecified; G89.29 Other chronic pain; G90.89 Other disorders of autonomic nervous system; D50.9 Iron deficiency anemia, unspecified; I10 Essential (primary) hypertension; I48.91 Unspecified atrial fibrillation; W19.XXXD Unspecified fall, subsequent encounter; E86.9 Volume depletion, unspecified; F32.A Depression, unspecified; G47.00 Insomnia, unspecified; I11.9 Hypertensive heart disease without heart failure; I48.0 Paroxysmal atrial fibrillation; K44.9 Diaphragmatic hernia without obstruction or gangrene; K57.30 Diverticulosis of large intestine without perforation or abscess without bleeding; K59.00 Constipation, unspecified; M43.16 Spondylolisthesis, lumbar region; M47.816 Spondylosis without myelopathy or radiculopathy, lumbar region; Z68.33 Body mass index [BMI] 33.0-33.9, adult; Z91.148 Patient's other noncompliance with medication regimen for other reason
CPT/HCPCS: 36415; 71045; 71275; 73502; 76705; 82378; 82652; 83550; 83735; 84100; 84300; 84443; 84550; 85025; 85610; 86140; 93005; 94640; 94664; 94760; 97535-GO-CO; A4663; A9150; J1650; J3420; J3590; J7512; J8999; Q0144; Q0162; Q9967